=== PATIENT | female | born 1945 | race Caucasian/White ===

== ENCOUNTER 2017-05-03 09:53 | Day surgery (SDC) | payer MEDICARE, OTHER ==
[~2017-05-03] VITALS: Ht 165.1 cm; Wt 75.8 kg
[~2017-05-03 09:53] MED LIST: CHOL10002; DOXY100; EXEM25 PO; FISH OIL 1,2001 EACH PO; HYDACE5325 PO; LEVSOD137 PO; LOSA50 PO; OSTEO BI-FLEX1 EAC2 PO; Ocuvite Softge1 EAC1 PO
== END 2017-05-03 12:27 | disposition home or self-care (01) ==
LOC: ORSCSDS 09:53
PROVIDERS: Internal Medicine Gastroenterology
PROC: 0DBK8ZX Excision of Ascending Colon, Via Natural or Artificial Opening Endoscopic, Diagnostic (ICD-10-PCS; principal; 2017-05-03 11:15)
PROC: 0DBL8ZX Excision of Transverse Colon, Via Natural or Artificial Opening Endoscopic, Diagnostic (ICD-10-PCS; principal; 2017-05-03 11:15)
DX: Z12.11 Encounter for screening for malignant neoplasm of colon (principal); D12.2 Benign neoplasm of ascending colon; D12.3 Benign neoplasm of transverse colon; K64.8 Other hemorrhoids; K57.30 Diverticulosis of large intestine without perforation or abscess without bleeding; Z86.010 Personal history of colon polyps; I10 Essential (primary) hypertension; E78.5 Hyperlipidemia, unspecified; E03.9 Hypothyroidism, unspecified; Z79.899 Other long term (current) drug therapy
CPT/HCPCS: 88305; J2405

== ENCOUNTER 2017-06-07 06:14 | Day surgery (SDC) | payer MEDICARE, OTHER ==
[~2017-06-07] VITALS: Ht 167.6 cm; Wt 77.8 kg
== END 2017-06-07 10:25 | disposition home or self-care (01) ==
LOC: ORSCSDS 06:14
PROVIDERS: Orthopaedic Surgery
PROC: 0SBD4ZZ Excision of Left Knee Joint, Percutaneous Endoscopic Approach (ICD-10-PCS; principal; 2017-06-07 07:30)
DX: S83.282A Other tear of lateral meniscus, current injury, left knee, initial encounter (principal); M94.262 Chondromalacia, left knee; I10 Essential (primary) hypertension; Z79.899 Other long term (current) drug therapy
CPT/HCPCS: C1713; J0171; J1100; J1885; J2250; J2370; J2405; J3010; J7120

== ENCOUNTER → 2017-08-19 | Outpatient (CLI) | payer MEDICARE, OTHER ==
[2017-08-22 10:32] LABS: HPV Genotype 16 Not Detected (NOTDET); HPV Genotype 18 Not Detected (NOTDET)
[2017-08-23 12:29] LABS: HPV High Risk Other Not Detected (NOTDET)
[2017-08-26 06:43] LABS: Source VAG/CERVIX
== END ==
LOC: LAB SHORT 16:33 → LAB 16:33
PROVIDERS: Obstetrics & Gynecology
DX: Z01.419 Encounter for gynecological examination (general) (routine) without abnormal findings (principal)
CPT/HCPCS: 87624; G0123

== ENCOUNTER 2018-05-22 12:34 | Day surgery (SDC) | payer MEDICARE, OTHER ==
[~2018-05-22] VITALS: Ht 167.6 cm; Wt 77.1 kg
[~2018-05-22 12:34] MED LIST changes: +CHOL10002 PO
--- NOTE | 2018-05-22 13:07 | NUR ---
Ambulatory in Day Surgery History, Chart, Medications and Allergies reviewed before start of procedure.Patient confirms NPO status and agrees with scheduled surgery. Patient reports completing Chlorhexadine shower X2 prior to admission to hospital.Surgical site prepped with 2% Chlorhexidine cloth wipe.
--- NOTE | 2018-05-22 19:25 | NUR ---
PT HAS BEEN STABLE POST OP. PAIN CONTROLLED WITH PRN AND SCHEDULED MEDS. PT HAS BEEN UP TO AMBULATE AND SIT IN CHAIR WITH MIN ASSIST. PT HAS VOIDED. IV DECREASED TO TKO. TAYO REG DIET AND DRINKING FLUIDS WELL. DRESSING CDI. PAS,TEDS AND POLAR PACK ON. CIRC AND SENSATION WNL. THERAPY HAS NOT SEEN PATIENT YET. WILL BE IN FOR CAREGIVER TRAINING TOMORROW. USES CALL LIGHT APPROPRIATELY.
--- NOTE | 2018-05-23 04:17 | NUR ---
SHIFT SUMMARY: PT POD #1 L TKA. PAIN MANAGED WITH 10 MG OXY PER EMAR. TAYO REG DIET, DRINKING PO FLUIDS AND VOIDING. UP TO BATHROOM WITH WALKER. ONE ASSIST. FLUIDS TKO. ABX INFUSING. VS WNL. NO CONCERNS AT THIS TIME.
[2018-05-23 05:31] LABS: BASOPHILS ABSOLUTE AUTO 0.02 K/mm3 (0.00-0.23); BASOPHILS PERCENT AUTO 0 % (0-2); EOSINOPHILS PERCENT AUTO 0 % (0-6); Hematocrit 36.5 % (33.0-51.0); Hemoglobin 11.8 g/dL (11.5-16.0); IMMATURE GRAN ABSOLUTE AUTO 0.04 K/mm3 (0.00-0.10); IMMATURE GRAN PERCENT AUTO 0 % (0-1); LYMPHOCYTES ABSOLUTE AUTO 1.08 K/mm3 (0.84-5.20); LYMPHOCYTES PERCENT AUTO 12 % (21-46); MONOCYTES ABSOLUTE AUTO 0.64 K/mm3 (0.16-1.47); MONOCYTES PERCENT AUTO 7 % (4-13); Mean Corpuscular HGB 29.5 pg (26.0-34.0); Mean Corpuscular HGB Conc 32.3 g/dL (31.5-36.5); Mean Corpuscular Volume 91 fL (80-100); Mean Platelet Volume 10.3 fL (9.1-12.4); NEUTROPHILS ABSOLUTE AUTO 7.42 K/mm3 (1.96-9.15); NEUTROPHILS PERCENT AUTO 81 % (41-73); Platelet Count 210 K/mm3 (150-400); RDW Coefficient Variation 12.3 % (11.7-14.2); RDW Standard Deviation 41.2 fL (35.1-46.3)
[2018-05-23 05:58] LABS: Anion Gap 9 mmol/L (6-16); Blood Urea Nitrogen 20 mg/dL (8-24); Bun/Creatinine Ratio 24.2 (12.0-20.0); CO2, Blood 25 mmol/L (21-32); Calcium, Blood 8.1 mg/dL (8.5-10.1); Chloride, Blood 106 mmol/L (98-108); Creatinine, Blood 0.83 mg/dL (0.40-1.00); Glomerular Filtration Rate >60 (60-); Glucose, Blood 135 mg/dL (70-99); Potassium, Blood 4.1 mmol/L (3.5-5.5); Sodium, Blood 140 mmol/L (136-145)
--- NOTE | 2018-05-23 07:05 | NUR ---
RECVD REPORT FROM PREVIOUS RN YRIS, PT SLEEPING IN BED, CALL LIGHT WITHIN REACH, BEDRAILS UP X 2
[2018-05-23] MEDS ORDERED: Percocet 5-3251 EACH PO (14:30)
--- NOTE | 2018-05-23 15:00 | NUR ---
pt provided with written prescriptions, discharge education and printed materials. pt states understanding of instructions. aquacel dressing for weekly change provided. peripheral iv removed wnl. pt escorted to awaiting vehicle via wheelchair. pt's transferred belongings to the vehicle.
--- NOTE | 2018-05-26 08:00 | NUR ---
05/26/18 0800 Cherrie Foreman VERIFICATIONS: EDIT CHART.
== END 2018-05-23 15:30 | disposition home or self-care (01) ==
LOC: ORSCMMR 12:34 → ORD 13:45 → ORSCMMR 14:00 → ORD 14:00 → SURS 16:50 → ORSCMMR 05-23 15:30
PROVIDERS: Orthopaedic Surgery
PROC: 0SRD0JA Replacement of Left Knee Joint with Synthetic Substitute, Uncemented, Open Approach (ICD-10-PCS; principal; 2018-05-22 14:00)
DX: M17.12 Unilateral primary osteoarthritis, left knee (principal); Z01.818 Encounter for other preprocedural examination; I10 Essential (primary) hypertension; E03.9 Hypothyroidism, unspecified; Z79.899 Other long term (current) drug therapy
CPT/HCPCS: 36415; 73560-LT; 80048; 85025; 86850; 86900; 86901; 88300; 97116; 97162; 97530; C1776; J0171; J0735; J1100; J1885; J2250; J2405; J2765; J2795; J3010; J7120

== ENCOUNTER 2020-09-23 08:24 | Day surgery (SDC) | payer MEDICARE, OTHER ==
[~2020-09-23] VITALS: Ht 167.6 cm; Wt 68.0 kg
[~2020-09-23 08:24] MED LIST changes: +LOSARTAN-HCTZ1 EACH PO; +Percocet 5-3251 EACH PO
--- NOTE | 2020-09-23 08:55 | NUR ---
09/23/20 0855 Delma Gannon 1 TRY 22 RIGHT UPPER ARM NOT IN 2 TRY RIGHT HAND 20 NOT IN
== END 2020-09-23 10:27 | disposition home or self-care (01) ==
LOC: ORSCSDS 08:24
PROVIDERS: Internal Medicine Gastroenterology
PROC: 0DBM8ZX Excision of Descending Colon, Via Natural or Artificial Opening Endoscopic, Diagnostic (ICD-10-PCS; principal; 2020-09-23 09:45)
DX: Z12.11 Encounter for screening for malignant neoplasm of colon (principal); Z86.010 Personal history of colon polyps; D12.4 Benign neoplasm of descending colon; K57.30 Diverticulosis of large intestine without perforation or abscess without bleeding; K64.8 Other hemorrhoids; Z79.899 Other long term (current) drug therapy
CPT/HCPCS: 88305; J2704; J7120